=== PATIENT | female | born 1990 | race Two or more races ===

== ENCOUNTER 2022-07-02 21:12 | Emergency (ER) | payer OTHER ==
[2022-07-02] MEDS ORDERED: IPRATROPIUM/ALBUTEROL 3 ML NEB INH STA (21:41)
[2022-07-02] MEDS ORDERED: CHERRY SYRUP 10 ML UDC PO ONE (21:41)
[2022-07-02] MEDS ORDERED: DEXAMETHASONE 10 MG/ML VIAL PO STA (21:41)
--- NOTE | 2022-07-02 21:46 | ED Physician Documentation ---
PD HPI URI - Stated complaint Stated Complaint: FEVER/SOA - Chief complaint Chief Complaint: Fever - History obtained from History obtained from: Patient, Family () - History of Present Illness Timing - onset: How many days ago (4) Timing duration: Days (4) Timing details: Gradual onset, Still present Associated symptoms: Fever, Chills, Sore throat, Dry cough, Dyspnea Contributing factors: Sick contact (all in the family are sick with URI patient has lasted longer.) Improves by: Rest, Medication, MDI/nebulizer Worsened by: Activity Similar symptoms before: Diagnosis (asthma) Recently seen: Not recently seen - Additional information Additional information: 32-year-old female with a history of asthma has developed a upper respiratory tract infection with rest of her family. She is continue to have fever cough congestion and shortness of breath. Her other family members have recovered. Her was tested negative for COVID and influenza her child tested negative for COVID and RSV. The patient has had an improvement in her asthma since moving to [facility] but she does have albuterol and a nebulizer at home these have been helping. Review of Systems Constitutional: reports: Fever, Chills, Myalgias, Fatigue, Sweats Eyes: denies: Decreased vision Ears: denies: Ear pain Nose: reports: Rhinorrhea / runny nose, Congestion Throat: reports: Sore throat Cardiac: denies: Chest pain / pressure, Palpitations Respiratory: reports: Dyspnea, Cough, Wheezing GI: denies: Abdominal Pain, Nausea, Vomiting, Constipation, Diarrhea : denies: Dysuria, Frequency PD PAST MEDICAL HISTORY - Present Medications Home Medications: Ambulatory Orders Medication Instructions Recorded Confirmed Azithromycin [Zithromax] 250 mg PO DAILY #6 tablet 07/02/22 predniSONE [Deltasone] 10 mg PO ONCE #26 tablet 07/02/22 - Allergies Allergies/Adverse Reactions: Allergies Allergy/AdvReac Type Severity Reaction Status Date / Time Penicillins Allergy Anaphylaxis Verified 07/02/22 21:24 ibuprofen AdvReac Edema Verified 07/02/22 21:24 PD ED PE NORMAL - Vitals Vital signs reviewed: Yes (Tachypneic and hypertensive) - General General: Alert and oriented X 3, Well developed/nourished, Other (tachypneic at rest) - HEENT HEENT: Atraumatic, PERRL, EOMI, Pharynx benign, Other (Left TM is inflamed in the attic and along the umbo the right is clear) - Neck Neck: Supple, no meningeal sign, No bony TTP - Cardiac Cardiac: RRR, No murmur - Respiratory Respiratory: Other (Tachypneic at rest with diminished breath sounds and scattered rhonchi and wheezes) - Abdomen Abdomen: Soft, Non tender - Back Back: No CVA TTP, No spinal TTP - Derm Derm: Normal color, Warm and dry, No rash - Extremities Extremities: No deformity, No edema - Neuro Neuro: Alert and oriented X 3, 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 parapertussis DNA (PCR) NOT DETECTED Nasal Coronavir 229E PCR NOT DETECTED Nasal Coronavir HKU1 PCR NOT DETECTED Nasal Coronavir NL63 PCR NOT DETECTED Nasal Coronavir OC43 PCR NOT DETECTED Nasal Enterovir/Rhinovir PCR NOT DETECTED Nasal Influenza B PCR NOT DETECTED Nasal Influenza A PCR NOT DETECTED Nasal Parainfluen 1 PCR NOT DETECTED Nasal Parainfluen 2 PCR NOT DETECTED Nasal Parainfluen 3 PCR NOT DETECTED Nasal Parainfluen 4 PCR NOT DETECTED Nasal RSV (PCR) DETECTED A Nasal B.pertussis DNA PCR NOT DETECTED Nasal C.pneumoniae (PCR) NOT DETECTED Uzair Human Metapneumo PCR NOT DETECTED Nasal M.pneumoniae (PCR) NOT DETECTED Nasal SARS-CoV-2 (PCR) NOT DETECTED - Rads (name of study) chest Radiology: Prelim report reviewed (Impression: Low lung volumes, without acute abnormality seen. No focal infiltrates are seen.), EMP read indepedently PD Medical Decision Making - ED course Complexity details: reviewed results, re-evaluated patient, considered differential, d/w patient, d/w family Reviewed Lab Results: The patient had diagnostic imaging including an x-ray of her chest which did not demonstrate any evidence of an infiltrate. This was the conclusive evidence t hat the patient did not have a pneumonia associated with her viral URI. ED course: 32-year-old female with a history of asthma read ports to the emergency department with dyspnea cough and fever. On examination she has diminished breath sounds and wheezes and she is administered dexamethasone and a DuoNeb treatment. On examination she also has otitis in the left ear. Her chest x-ray was without evidence of infiltrate. Her nasal swab is positive for RSV. She is treated for exacerbation of asthma and a complicating Otitis. Departure - Departure Disposition: 01 Home, Self Care Clinical Impression: RSV bronchitis Otitis media Qualifiers: Otitis media type: suppurative Chronicity: acute Laterality: left Recurrence: non-recurrent Spontaneous tympanic membrane rupture: without spontaneous rupture Qualified Code(s): H66.002 - Acute suppurative otitis media without spontaneous rupture of ear drum, left ear Condition: Stable Instructions: ED Bronchitis Asthmatic, ED Otitis Media Acute Adult Follow-Up: [facility] [Provider Group] Prescriptions: predniSONE [Deltasone] 10 mg PO ONCE #26 tablet Azithromycin [Zithromax] 250 mg PO DAILY #6 tablet Comments: Patti, today it looks like you have RSV bronchitis and our expectation with the treatment is you will have improvement in your asthmatic symptoms with the use of the steroid. In addition there is evidence of infection in the left middle ear which is a secondary problem and usually a bacterial problem. I have E scribed some azithromycin to the [facility] in [place]. Discharge Date/Time: 07/02/22 23:12
--- NOTE | 2022-07-02 22:35 | XRAY Report ---
PROCEDURE: Chest 1 View X-Ray INDICATIONS: Short of breath, fever TECHNIQUE: One view of the chest was acquired. COMPARISON: None. FINDINGS: Surgical changes and devices: None. Lungs and pleura: An incomplete inspiratory result is noted, with low lung volumes and crowding of t he vascular markings. No focal infiltrates are seen. No large pneumothorax or large pleural effusion can be seen. Mediastinum: Mediastinal contours appear normal. Heart size is normal. Bones and chest wall: No suspicious bony lesions. Overlying soft tissues appear unremarkable. IMPRESSION: Low lung volumes, without an acute abnormality seen. No focal infiltrates are seen. Reviewed by: Sampson Antoine MD on 07/02/2022 9:34 PM [facility] Approved by: Sampson Antoine MD on 07/02/2022 9:34 PM [facility] Station ID: [id number]
[2022-07-02 22:53] LABS: B. PARAPERTUSSIS- RESP PCR PAN NOT DETECTED; B. PERTUSSIS- RESP PCR PANEL NOT DETECTED; C. PNEUMONIAE- RESP PCR PANEL NOT DETECTED; CORONAVIRUS 229E-RESP PCR NOT DETECTED; CORONAVIRUS HKU1-RESP PCR NOT DETECTED; CORONAVIRUS NL63-RESP PCR NOT DETECTED; CORONAVIRUS OC43-RESP PCR NOT DETECTED; HUMAN METAPNEUMOVIRUS NOT DETECTED; INFLUENZA A- RESP PCR PANEL NOT DETECTED; INFLUENZA B - RESP PCR PANEL NOT DETECTED; M. PNEUMONIAE- RESP PCR PANEL NOT DETECTED; PARAINFLUENZA VIRUS 1 NOT DETECTED; PARAINFLUENZA VIRUS 2 NOT DETECTED; PARAINFLUENZA VIRUS 3 NOT DETECTED; PARAINFLUENZA VIRUS 4 NOT DETECTED; RHINOVIRUS/ENTEROVIRUS NOT DETECTED; RSV- RESP PCR PANEL DETECTED; SARS-CoV-2 -RESP PCR PANEL NOT DETECTED
[2022-07-02 23:19] VITALS: BP 130/90
== END 2022-07-02 23:12 | disposition home or self-care (01) ==
LOC: ED 21:12
DX: J20.5 Acute bronchitis due to respiratory syncytial virus (principal); J06.9 Acute upper respiratory infection, unspecified; H66.002 Acute suppurative otitis media without spontaneous rupture of ear drum, left ear; Z20.822 Contact with and (suspected) exposure to COVID-19
CPT/HCPCS: 71045; 87633; 94640; 99284; A9270

== ENCOUNTER 2022-09-18 13:55 | Emergency (ER) | payer OTHER ==
[2022-09-18 17:07] VITALS: BP 124/64
[2022-09-18 18:35] LABS: HCG UR QUAL NEGATIVE
--- NOTE | 2022-09-18 18:43 | ED Physician Documentation ---
History of Present Illness - Stated complaint Stated Complaint: SPOTTING/MIGRAINE - Chief complaint Chief Complaint: General - History obtained from History obtained from: Patient - Additonal information Additional information: The patient comes to the emergency department chief complaint of passing large clots today after spotting for a few days. She states she started her period on time, but it was just spotting for a few days. Then, all of a sudden, she passed a large clot this morning. AFter that, she states the bleeding went back to spotting, with passage of one more, much smaller clot a few hours later. She states the bleeding is almost done now, and she never had any heavy bleeding. She has also had a headache since yesterday, which she gets occasionally. She states Tylenol didn't help. No abdominal pain. No lightheadedness or dyspnea. PD PAST MEDICAL HISTORY - Present Medications Home Medications: Ambulatory Orders Medication Instructions Recorded Confirmed Azithromycin [Zithromax] 250 mg PO DAILY #6 tablet 07/02/22 predniSONE [Deltasone] 10 mg PO ONCE #26 tablet 07/02/22 - Allergies Allergies/Adverse Reactions: Allergies Allergy/AdvReac Type Severity Reaction Status Date / Time Penicillins Allergy Anaphylaxis Verified 07/02/22 21:24 ibuprofen AdvReac Edema Verified 07/02/22 21:24 PD ED PE NORMAL - Vitals Vital signs reviewed: Yes - General General: Alert and oriented X 3, No acute distress, Well developed/nourished - HEENT HEENT: Atraumatic, PERRL, EOMI, Moist mucous membranes - Neck Neck: Supple, no meningeal sign - Cardiac Cardiac: RRR, No murmur, Strong equal pulses - Respiratory Respiratory: No respiratory distress, Clear bilaterally - Abdomen Abdomen: Soft, Non tender, Non distended - Derm Derm: Normal color, Warm and dry, No rash - Extremities Extremities: No deformity - Neuro Neuro: Alert and oriented X 3 - Psych Psych: Normal mood, Normal affect Results - Vitals Vitals: Vital Signs - 24 hr 09/18/22 09/18/22 14:25 17:06 Temperature 36.4 C L 36.4 C L Heart Rate 77 76 Respiratory 18 18 Rate Blood Pressure 128/80 124/64 O2 Saturation 99 100 Oxygen O2 Source Room air - Labs Labs: Laboratory Tests 09/18/22 18:11 Urine HCG, Qual NEGATIVE PD Medical Decision Making - ED course Complexity details: considered differential, d/w patient ED course: I d/w pt that I do not find any reason for concern over the pt's bleeding at this point. She has never had any heavy bleeding, and I suspect the spotting with sudden passage of a large clot was due to damming at the cervix by a smaller clot, building up blood and forming a larger clot which finally passed. The pt is stable for d/c. She is not . She does not wish treatment for her headache at this time, and will follow up, as needed. Departure - Departure Disposition: 01 Home, Self Care Clinical Impression: Dysfunctional uterine bleeding Headache Qualifiers: Headache type: unspecified Headache chronicity pattern: acute headache Intractability: not intractable Qualified Code(s): R51.9 - Headache, unspecified Condition: Stable Instructions: ED Bleed Irregular Vaginal, ED Cephalgia Unspecified Comments: The bleeding you are reporting does not sound worrisome. Most likely, what happened, given that your bleeding actually started around the time it should for this month's period, is that you had a small clot that "dammed up" your cervix and allowed the blood that normally would have come out to sit in your uterus and congeal. It most likely formed an increasingly large clot which finally slid out. Since you are not doing any heavy bleeding otherwise, this is not necessarily concerning and is most likely just your blood doing what it ought to do. If you begin to have very irregular periods or excessively heavy bleeding, then you will need to follow-up with a gynecology specialist to explore this further. For now, however, no emergent condition has been identified. As far as your headache, you may take ibuprofen and Tylenol if needed. Sometimes, caffeine is also helpful for a headache, though this should be taken in the morning. Please follow-up with your primary doctor as needed. Discharge Date/Time: 09/18/22 18:52
== END 2022-09-18 18:52 | disposition home or self-care (01) ==
LOC: ED 13:55
DX: N93.8 Other specified abnormal uterine and vaginal bleeding (principal); R51.9 Headache, unspecified
CPT/HCPCS: 81025; 99283

== ENCOUNTER 2023-10-20 18:53 | Emergency (ER) | payer OTHER ==
[2023-10-20 19:21] VITALS: O2SAT 99
[2023-10-20 19:27] LABS: BILIRUBIN,URINE NEGATIVE (NEGATIVE); GLUCOSE, URINE (UA) NEGATIVE (NEGATIVE); KETONES,URINE (UA) NEGATIVE (NEGATIVE); LEUKOCYTE ESTERASE, URINE NEGATIVE (NEGATIVE); NITRITE,URINE NEGATIVE (NEGATIVE); OCCULT BLOOD,URINE TRACE-INTA (NEGATIVE); PH,URINE 6.5 PH (5.0-7.5); PROTEIN,URINE NEGATIVE (NEGATIVE); UROBILINOGEN,URINE 0.2 (NORMAL) E.U./dL (NORMAL)
[2023-10-20 19:30] LABS: CLARITY,URINE CLEAR (CLEAR); HCG UR QUAL NEGATIVE
[2023-10-20 19:35] LABS: RBC,URINE 0-5 /HPF (0-5); SQUAMOUS EPITHELIAL CELL,UR FEW Squamous (<= Few); WBC,URINE 0-3 /HPF (0-5)
[2023-10-20 19:36] LABS: BACTERIA,URINE Rare /HPF (None Seen)
[2023-10-20 20:15] LABS: B. PARAPERTUSSIS- RESP PCR PAN NOT DETECTED; B. PERTUSSIS- RESP PCR PANEL NOT DETECTED; C. PNEUMONIAE- RESP PCR PANEL NOT DETECTED; CORONAVIRUS 229E-RESP PCR NOT DETECTED; CORONAVIRUS HKU1-RESP PCR NOT DETECTED; CORONAVIRUS NL63-RESP PCR NOT DETECTED; CORONAVIRUS OC43-RESP PCR NOT DETECTED; HUMAN METAPNEUMOVIRUS NOT DETECTED; INFLUENZA A H1 2009- RESP PCR DETECTED; INFLUENZA B - RESP PCR PANEL NOT DETECTED; PARAINFLUENZA VIRUS 1 NOT DETECTED; PARAINFLUENZA VIRUS 2 NOT DETECTED; PARAINFLUENZA VIRUS 3 NOT DETECTED; PARAINFLUENZA VIRUS 4 NOT DETECTED; RHINOVIRUS/ENTEROVIRUS NOT DETECTED; RSV- RESP PCR PANEL NOT DETECTED; SARS-CoV-2 -RESP PCR PANEL NOT DETECTED
[2023-10-20 20:16] LABS: M. PNEUMONIAE- RESP PCR PANEL NOT DETECTED
[2023-10-20] MEDS: NAPROXEN 250 MG TABLET PO STA (20:33)
[2023-10-20] MEDS: ONDANSETRON ODT 4 MG TABLET TL STA (20:33)
[2023-10-20] MEDS: SODIUM CHLORIDE 0.9% 1,000 ML IV ONE (20:35)
[2023-10-20 21:58] VITALS: BP 127/65
--- NOTE | 2023-11-01 14:38 | ED Physician Documentation ---
History of Present Illness - Stated complaint Stated Complaint: FEVER - Chief complaint Chief Complaint: Fever - Additonal information Additional information: 33 yo female with no pertinent past medical history presents to the ER with for fevers, chills and body aches for one day. Pt reports she was in the ER last night for her daughter who has the flu and has similar symptoms. She endorses in nausea, vomiting, fevers, chills, denies shortness of breath, chest pain, or diarrhea. PD PAST MEDICAL HISTORY - Past Medical History Past Medical History: No - Past Surgical History Past Surgical History: No - Present Medications Home Medications: Ambulatory Orders Medication Instructions Recorded Confirmed Azithromycin [Zithromax] 250 mg PO DAILY #6 tablet 07/02/22 predniSONE [Deltasone] 10 mg PO ONCE #26 tablet 07/02/22 Oseltamivir [Tamiflu] 75 mg PO BID 5 Days #10 cap 10/20/23 - Allergies Allergies/Adverse Reactions: Allergies Allergy/AdvReac Type Severity Reaction Status Date / Time Penicillins Allergy Anaphylaxis Verified 10/20/23 19:17 ibuprofen AdvReac Edema Verified 10/20/23 19:17 - Social History Does the pt smoke?: No Smoking Status: Never smoker PD ED PE NORMAL - Vitals Vital signs reviewed: Yes - General General: Alert and oriented X 3, No acute distress, Well developed/nourished - HEENT HEENT: Atraumatic, PERRL, EOMI, Moist mucous membranes - Cardiac Cardiac: RRR - Respiratory Respiratory: No respiratory distress, Clear bilaterally - Abdomen Abdomen: Normal bowel sounds, Soft, Non distended, No organomegaly Results - Vitals Vitals: Oxygen O2 Source Room air - Labs Labs: Laboratory Tests 10/20/23 10/20/23 19:18 19:21 Urine Color YELLOW Urine Clarity CLEAR Urine pH 6.5 Ur Specific [place] <=1.005 Urine Protein NEGATIVE Urine Glucose (UA) NEGATIVE Urine Ketones NEGATIVE Urine Occult Blood TRACE-INTA Urine Nitrite NEGATIVE Urine Bilirubin NEGATIVE Urine Urobilinogen 0.2 (NORMAL) Ur Leukocyte Esterase NEGATIVE Urine RBC 0-5 Urine WBC 0-3 Ur Squamous Epith Cells FEW Squamous Urine Bacteria Rare Urine Culture Comments NOT INDICATED Urine HCG, Qual NEGATIVE Nasal Adenovirus (PCR) NOT DETECTED Nasal B. parapertussis DNA (PCR) NOT DETECTED Nasal Coronavir 229E PCR NOT DETECTED Nasal Coronavir HKU1 PCR NOT DETECTED Nasal Coronavir NL63 PCR NOT DETECTED Nasal Coronavir OC43 PCR NOT DETECTED Nasal Enterovir/Rhinovir PCR NOT DETECTED Nasal Influ A H1 2009 PCR DETECTED A Nasal Influenza B PCR NOT DETECTED Nasal Parainfluen 1 PCR NOT DETECTED Nasal Parainfluen 2 PCR NOT DETECTED Nasal Parainfluen 3 PCR NOT DETECTED Nasal Parainfluen 4 PCR NOT DETECTED Nasal RSV (PCR) NOT DETECTED Nasal B.pertussis DNA PCR NOT DETECTED Nasal C.pneumoniae (PCR) NOT DETECTED Uzair Human Metapneumo PCR NOT DETECTED Nasal M.pneumoniae (PCR) NOT DETECTED Nasal SARS-CoV-2 (PCR) NOT DETECTED PD Medical Decision Making - ED course ED course: 33 year old female here for like symptoms. Pt tested positive for H1N1, she was given 1 Litre IV fluids, zofran, tylenol, and tamiflu. script sent to her preferred pharmacy, all questions answered, return precautions given and pt told to follow up with her PCP. Departure - Departure Disposition: 01 Home, Self Care Clinical Impression: H1N1 influenza Instructions: ED Flu, Medication: Tamiflu (Oseltamivir) Prescriptions: Oseltamivir [Tamiflu] 75 mg PO BID 5 Days #10 cap Comments: Thank you for trusting us with your care. You have the flu I have sent a prescription of Tamiflu to [facility] per your preference in [place]. Make sure that you are getting plenty of rest staying well-hydrated and eat a healthy well-balanced diet. Please come back to the emergency department if you have a fever that lasts longer than 5 days, shortness of breath, chest pain, or any other concerning symptoms. We have given you Aleve here in the emergency department and you tolerated this well you can take 500 mg every 12 hours as needed for headache and generalized body aches as well as 1000 mg of Tylenol every 8 hours for fevers chills or bodyaches. Forms: PCP List Discharge Date/Time: 10/20/23 21:53
== END 2023-10-20 21:53 | disposition home or self-care (01) ==
LOC: ED 18:53
DX: J10.1 Influenza due to other identified influenza virus with other respiratory manifestations (principal); Z79.899 Other long term (current) drug therapy
CPT/HCPCS: 81001; 81025; 87086; 87633; 99283; 99284